=== PATIENT | male | born 1985 | race African-American/Black ===

== ENCOUNTER 2018-03-19 20:42 | Emergency (ER) | payer SELFPAY ==
[~2018-03-19] VITALS: Ht 185.4 cm; Wt 99.8 kg
[2018-03-19 20:55] VITALS: BP 146/82
[2018-03-19] MEDS ORDERED: MUPIROCIN22 GM TOPIC (21:24)
[2018-03-19] MEDS ORDERED: BACTRIM DS TAB1 EAC1 ORAL (21:24)
[2018-03-19] MEDS ORDERED: HYDROCODON-ACE1 EA15 ORAL (21:24)
--- NOTE | 2018-03-19 21:24 | Emergency Room Report ---
History of Present Illness General Chief Complaint: Skin Rash/Abscess Source: Patient Present Illness [facility] This is a 32-year-old male with no past mental history. He presents with an abscess to his right axilla and his been there for 5 days. Initially small and when he try to poke it a couple days ago, he got much bigger. Tender to palpation. Worse with movement. Better with rest. There is some swelling but no drainage. Never had this problem before. No injury. No fever. Allergies: Coded Allergies: IBUPROFEN (Verified Allergy, Unknown, 03/19/18) Patient History Past Medical History: see triage record, old chart reviewed Past Surgical History: none Pertinent Family History: none Social History: Denies: smoking Immunizations: other Reviewed Nursing Documentation: PMH: Agreed; PSxH: Agreed Nursing Documentation-PMH Past Medical History: No Stated History Review of Systems Eye: Denies: eye pain, blurred vision ENT: Denies: ear pain, nose congestion, throat swelling Respiratory: Denies: cough, shortness of breath Cardiovascular: Denies: chest pain, palpitations Gastrointestinal: Denies: abdominal pain, diarrhea, nausea, vomiting Musculoskeletal: Denies: back pain, joint pain Skin: Denies: rash Neurological: Denies: headache, numbness Endocrine: Denies: increased thirst, increased urine Hematologic/Lymphatic: Denies: easy bruising All Other Systems: negative except mentioned in HPI Physical Exam Vital Signs Date Time Temp Pulse Resp B/P (MAP) Pulse Ox O2 Delivery O2 Flow Rate FiO2 03/19/18 20:53 97.9 78 18 146/82 96 Room Air 97.9 vitals normal Sp02 EP Interpretation: reviewed, normal General Appearance: well appearing, no apparent distress, alert Head: normocephalic, atraumatic Eyes: bilateral eye PERRL, bilateral eye EOMI ENT: hearing grossly normal, normal pharynx Neck: full range of motion, supple, no meningismus Respiratory: chest non-tender, lungs clear, normal breath sounds Cardiovascular #1: regular rate, rhythm, no murmur Gastrointestinal: normal bowel sounds, non tender, no mass, no organomegaly, no bruit, non-distended Musculoskeletal: back normal, gait/station normal, normal range of motion, other - Right axilla: There is a fluctuant mass of 3 cm with surrounding erythema on the arm aspect of the axilla. No crepitance. Full range of motion. Neurologic: alert, oriented x3 Psychiatric: mood/affect normal Skin: warm/dry Procedures Incision and Drainage Incision and Drainage : Consent: Verbal Site: right axilla Blade Size: 11 I & D Procedure: betadine prep, sterile drapes applied, sterile dressing applied, gauze wick placed Wound Location: upper extremity Anesthesia: 1% Lidocaine Volume Anesthetic (ccs): 5 Patient Tolerated: Well Complications: None Progress I made a 2 cm incision over the fluctuant area after cleaning it. Copious amount of pus expressed. Wound irrigated and packed. Patient tolerated procedure without a problem. Medical Decision Making Diagnostic Impression: Primary Impression: Abscess of axilla, right ER Course Patient with axilla abscess. Most likely MRSA. No evidence of deep infection or necrotizing fasciitis. Last Vital Signs Date Time Temp Pulse Resp B/P (MAP) Pulse Ox O2 Delivery O2 Flow Rate FiO2 03/19/18 20:53 97.9 78 18 146/82 96 Room Air 97.9 Status: improved Disposition: HOME, SELF-CARE Condition: Stable Scripts Mupirocin* (MUPIROCIN*) 22 Gm Oint...g. 1 APPLIC TOPIC THREE TIMES A DAY, #22 GM Prov: DUNCAN SOMMERS M.D. 03/19/18 Hydrocodone/Acetaminophen 5-325* (HYDROCODONE/ACETAMINOPHEN 5-325*) 1 Each Tablet 1 TAB ORAL Q6H PRN for For Pain, #10 TAB 0 Refills Prov: DUNCAN SOMMERS M.D. 03/19/18 Trimethoprim/Sulfamethoxazole 160/800* (BACTRIM DS TABLET*) 1 Each Tablet 1 TAB ORAL Q12H, #14 TAB 0 Refills Prov: DUNCAN SOMMERS M.D. 03/19/18 Patient Instructions: Abscess Additional Instructions: Keep wound clean. Clean with hydrogen peroxide first, then apply antibiotic ointment. Follow-up in 2-3 days for wound check and packing removal. Return if worse. DUNCAN SOMMERS M.D. Mar 19, 2018 21:24
[2018-03-19] MEDS ORDERED: Bactrim-DS 1 tab ORAL ONE (21:30)
[2018-03-19] MEDS ORDERED: Norco 5mg/325mg tab ORAL ONE (21:30)
[2018-03-19 21:33] VITALS: BP 146/82
== END 2018-03-19 21:46 | disposition home or self-care (01) ==
LOC: EMR 21:18
DX: L02.411 Cutaneous abscess of right axilla (principal)
CPT/HCPCS: 10060; 99283

== ENCOUNTER 2018-03-25 14:06 | Emergency (ER) | payer SELFPAY ==
[~2018-03-25] VITALS: Ht 185.4 cm; Wt 99.8 kg
[~2018-03-25 14:06] MED LIST: BACTRIM DS TAB1 EAC1 ORAL; HYDROCODON-ACE1 EA15 ORAL; MUPIROCIN22 GM TOPIC
--- NOTE | 2018-03-25 15:40 | Emergency Room Report ---
History of Present Illness General Chief Complaint: Wound Recheck/Suture Removal Source: Patient Present Illness HPI right axilla I & D over 1 week ago. here for packing removal was supposed to come 3 days ago but has been busy. no fevers, erythema or pain. Allergies: Coded Allergies: IBUPROFEN (Verified Allergy, Unknown, 03/25/18) Patient History Past Medical History: see triage record Past Surgical History: none Pertinent Family History: none Reviewed Nursing Documentation: PMH: Agreed; PSxH: Agreed Nursing Documentation-PMH Past Medical History: No Stated History Review of Systems All Other Systems: negative except mentioned in HPI Physical Exam Vital Signs Date Time Temp Pulse Resp B/P (MAP) Pulse Ox O2 Delivery O2 Flow Rate FiO2 03/25/18 14:25 98.1 68 16 122/75 97 Room Air 98.1 Medical Decision Making PA Attestation Dr. Wesley is my supervising Physician whom patient management has been discussed with. Diagnostic Impression: Primary Impression: Change or removal of wound packing ER Course Pt. presents to the ED c/o pain, swelling, and erythema of left buttcok Ddx considered but are not limited to cellulitis, abscess, cystic acne, necrotizing fasciitis, insect bite. Vital signs: are WNL, pt. is afebrile H&PE are most consistent with healing previouisly incised abscess. ORDERS: none required at this time, the diagnosis is clinical ED INTERVENTIONS: -wound packing removed. -Sterile dressing applied. d/w pt. to continue taking po abx and to look for signs of infection . DISCHARGE: At this time pt. is stable for d/c to home. Will provide printed patient care instructions, and any necessary prescriptions. Care plan and follow up instructions have been discussed with the patient prior to discharge. Last Vital Signs Date Time Temp Pulse Resp B/P (MAP) Pulse Ox O2 Delivery O2 Flow Rate FiO2 03/25/18 14:25 98.1 68 16 122/75 97 Room Air 98.1 Disposition: HOME, SELF-CARE Condition: Stable Referrals: NOT CHOSEN IPA/MD,REFERRING (PCP) Patient Instructions: Wound Check Additional Instructions: Take previously prescribed antibiotics medications as directed - until finished. Follow up with a Primary Care Provider in 3-5 days, even if your symptoms have resolved. - Please note that this Emergency Department Report was dictated using Dragon per diem registered nurse technology software, occasionally this can lead to erroneous entry secondary to interpretation by the dictation equipment. Leatha Pérez Mar 25, 2018 15:40
[2018-03-25] MEDS ORDERED: BACITRACIN-P28.35 GM TP (15:41)
[2018-03-25 16:04] VITALS: BP 122/75
[2018-03-25 16:05] VITALS: BP 122/75
== END 2018-03-25 16:06 | disposition home or self-care (01) ==
LOC: EMR 14:55
DX: Z48.00 Encounter for change or removal of nonsurgical wound dressing (principal); L02.31 Cutaneous abscess of buttock
CPT/HCPCS: 99281

== ENCOUNTER 2018-08-09 01:17 | Emergency (ER) | payer SELFPAY ==
[~2018-08-09] VITALS: Ht 185.4 cm; Wt 102.1 kg
[~2018-08-09 01:17] MED LIST changes: +BACITRACIN-P28.35 GM TP
[2018-08-09 01:25] VITALS: BP 134/78
--- NOTE | 2018-08-09 01:25 | NUR ---
ED Nurse Note: Patient presents with inflamed abscess at left axilla.
[2018-08-09] MEDS ORDERED: NKM (01:27)
[2018-08-09] MEDS ORDERED: Bacitracin Oint UD TOPIC ONE ×2 (01:50→02:00)
[2018-08-09] MEDS ORDERED: MUPIROCIN22 GM TOPIC (01:59)
[2018-08-09] MEDS ORDERED: BACTRIM DS TAB1 EAC1 ORAL (01:59)
[2018-08-09] MEDS ORDERED: CEPHALEXIN500 MG ORAL (01:59)
--- NOTE | 2018-08-09 02:05 | NUR ---
ED Nurse Note: patient cleared for discharge, exhibits great relief, ID band removed. patient verbalized understanding of discharge instructions. Patient is A&Ox4, ambulatory with steady gait and has no s/s of acute distress. patient departed along with belongings.
[2018-08-09 02:06] VITALS: BP 134/78
--- NOTE | 2018-08-09 04:38 | Emergency Room Report ---
History of Present Illness General Chief Complaint: Skin Rash/Abscess Source: Patient Present Illness HPI 32-year-old male presents ED complaining of pain and swelling underneath left axilla times one week. Pain is throbbing, 9 out of 10, nonradiating. Applied topical ointment yesterday but states it did not help. Denies fevers or chills. Notes some discharge. Denies shaving. States he had a similar abscess under his right axilla previously that he had drained. No other episodes. No other aggravating relieving factors. Denies any other associated symptoms Allergies: Coded Allergies: No Known Allergies (Unverified , 08/09/18) Patient History Past Medical History: none Past Surgical History: none Pertinent Family History: none Social History: Denies: smoking, alcohol use, drug use Immunizations: UTD Reviewed Nursing Documentation: PMH: Agreed; PSxH: Agreed Nursing Documentation-PMH Past Medical History: No Stated History Review of Systems All Other Systems: negative except mentioned in HPI Physical Exam Vital Signs Date Time Temp Pulse Resp B/P (MAP) Pulse Ox O2 Delivery O2 Flow Rate FiO2 08/09/18 01:24 98.4 87 16 134/78 96 Room Air Sp02 EP Interpretation: reviewed, normal General Appearance: no apparent distress, alert, GCS 15, non-toxic Head: normocephalic Eyes: bilateral eye normal inspection, bilateral eye PERRL ENT: normal ENT inspection Neck: normal inspection Respiratory: normal inspection Cardiovascular #1: normal inspection Gastrointestinal: normal inspection Rectal: deferred Genitourinary: no CVA tenderness Musculoskeletal: normal inspection Neurologic: alert, oriented x3, responsive, motor strength/tone normal, sensory intact, speech normal Psychiatric: normal inspection Skin: other - 2cm fluctuant abscess under L axilla. surrounding erythema/ induration Lymphatic: normal inspection Procedures Incision and Drainage Incision and Drainage : Consent: Verbal Blade Size: 11 I & D Procedure: betadine prep, sterile drapes applied, sterile dressing applied, gauze wick placed Wound Location: other - L axilla Wound's Depth, Shape: other - 2cm abscess Wound Explored: clean Anesthesia: 1% Lidocaine Splint Applied?: No Sling Applied?: No Patient Tolerated: Well Complications: None Medical Decision Making Diagnostic Impression: Primary Impression: Abscess ER Course Hospital Course 32-year-old M presents to ED with L axilla pain/swelling Clinical course Patient placed on stretcher. After initial history physical exam reveals male in no acute distress. There is a fluctuant abscess noted to the left axilla with surrounding erythema and induration. Anesthetized with lidocaine. Using scalpel I made an incision and purulent discharge was expressed. I used forceps to break up loculations with additional purulent discharge. Patient tolerated procedure without difficulty. Wound cleaned. Dressing applied Discussed findings with patient. Wound care instructions given. Will discharge with antibiotics. Safe for discharge and close outpatient follow-up. Does not have a PMD. We'll provide referrals Diagnosis - abscess Stable and discharged to home with prescription for mupirocin, bactrim, Keflex. wound Care instructions given. Followup with PMD. Return to ED if any signs of infection develop Last Vital Signs Date Time Temp Pulse Resp B/P (MAP) Pulse Ox O2 Delivery O2 Flow Rate FiO2 08/09/18 02:06 98.4 89 16 134/78 96 Room Air Status: improved Disposition: HOME, SELF-CARE Condition: Stable Scripts Trimethoprim/Sulfamethoxazole 160/800* (BACTRIM DS TABLET*) 1 Each Tablet 1 TAB ORAL Q12H, #14 TAB 0 Refills Prov: Damion Murcia MD 08/09/18 Cephalexin* (KEFLEX*) 500 Mg Capsule 500 MG ORAL EVERY 6 HOURS for 7 Days, CAP Prov: Damion Murcia MD 08/09/18 Mupirocin* (MUPIROCIN*) 22 Gm Oint...g. 1 APPLIC TOPIC THREE TIMES A DAY, #22 GM Prov: Damion Murcia MD 08/09/18 Referrals: [facility] Patient Instructions: Abscess Damion Murcia MD Aug 09, 2018 04:38
== END 2018-08-09 02:07 | disposition home or self-care (01) ==
LOC: EMR 01:38
DX: L02.412 Cutaneous abscess of left axilla (principal)
CPT/HCPCS: 99283